=== PATIENT | male | born 1965 | race Caucasian/White ===

== ENCOUNTER → 2019-09-02 | Outpatient (CLI) | payer BC | LOC: COL.RAD 12:18 | DX: M47.24 Other spondylosis with radiculopathy, thoracic region (principal) ==

== ENCOUNTER 2020-06-11 11:14 | Day surgery (SDC) | payer BC ==
[2020-06-11] VITALS (7 sets, daily range): BP systolic 103–113; BP diastolic 62–75; PULSE 68–106; TEMP 98.2
[~2020-06-11] VITALS: Ht 185.4 cm; Wt 79.3 kg
[2020-06-11] MEDS ORDERED: ZESTRIL 20MG TA20 MG PO (12:19)
[2020-06-11] MEDS ORDERED: XANAX 1MG1 MG PO (12:19)
[2020-06-11 12:20] LABS: HEMATOCRIT 42.1 % (42.0-52.0); HEMOGLOBIN 13.6 g/dl (13.5-18.0); MEAN CELL VOLUME 87 fl (80.0-100.0); MEAN CORPUSCULAR HEMOGLOBIN 28 pg (27.0-31.0); MEAN CORPUSCULAR HGB CONC 32 g/dl (33.0-37.0); MEAN PLATELET VOLUME 8.9 fl (7.4-10.4); PLATELET COUNT 265 K/mm3 (130-400); RED BLOOD COUNT 4.83 M/mm3 (4.20-5.60); REDCELL DISTRIBUTION WIDTH-CV 14.2 % (11.5-14.5)
[2020-06-11] MEDS ORDERED: FOLIC ACID0.4 MG PO (12:20)
[2020-06-11] MEDS ORDERED: LIPITOR 40MG TA40 MG PO (12:21)
[2020-06-11] MEDS ORDERED: SINGULAIR 110 MG/TAB PO (12:21)
[2020-06-11] MEDS ORDERED: CLARITIN 1010 MG/TAB PO (12:21)
[2020-06-11] MEDS ORDERED: BENADRYL25 M2 PO (12:22)
[2020-06-11] MEDS ORDERED: VITAMIN B12 681 TAB PO (12:22)
[2020-06-11] MEDS ORDERED: NEURONTIN600 MG/TAB PO (12:23)
[2020-06-11] MEDS ORDERED: MASON NATURAL2000 IU PO (12:23)
[2020-06-11] MEDS ORDERED: CYMBALTA 60MG60 MG PO (12:23)
[2020-06-11 12:26] LABS: INR 1.1 (0.8-3.0); PROTHROMBIN TIME 12.1 SECONDS (9.7-12.8)
[2020-06-11 12:30] LABS: CALCIUM 9.8 mg/dL (8.4-10.2); CREATININE, serum 0.89 (0.66-1.25)
[2020-06-11 13:01] LABS: POTASSIUM 4.9 mmol/L (3.4-5.0)
--- NOTE | 2020-06-11 13:17 | NUR ---
SEE MERGE DOCUMENTATION FOR MEDICATION ADMINISTRATION TIMES AND INTRA/POST PROCEDURE SEDATION ASSESSMENTS.
--- NOTE | 2020-06-11 14:30 | NUR ---
Back from [facility] where pt was kept for an hour post procedure to watch blood pressure. Alert and oriented, denies pain and needs at this time. VSS at baseline. Will monitor
--- NOTE | 2020-06-11 16:00 | NUR ---
INT discontinued intact. Right Tband deflated of 12 cc air and pressure dressing applied. Discharge instructions given and ambulated with steady gait with this nurse to car driven by sister
== END 2020-06-11 16:00 | disposition home or self-care (01) ==
LOC: COL.CAR 11:14
PROVIDERS: Internal Medicine Interventional Cardiology
DX: I24.0 Acute coronary thrombosis not resulting in myocardial infarction (principal); F41.9 Anxiety disorder, unspecified; E11.9 Type 2 diabetes mellitus without complications; F17.210 Nicotine dependence, cigarettes, uncomplicated; Z79.899 Other long term (current) drug therapy; Z20.828 Contact with and (suspected) exposure to other viral communicable diseases; Z79.4 Long term (current) use of insulin; Z88.1 Allergy status to other antibiotic agents
CPT/HCPCS: C1769; C1894; J1644; J2250; J3010; Q9967

== ENCOUNTER → 2020-10-20 | Outpatient (CLI) | payer BC ==
[~2020-10-20] MED LIST: BENADRYL25 M2 PO; CLARITIN 1010 MG/TAB PO; CYMBALTA 60MG60 MG PO; FOLIC ACID0.4 MG PO; LIPITOR 40MG TA40 MG PO; MASON NATURAL2000 IU PO; NEURONTIN600 MG/TAB PO; SINGULAIR 110 MG/TAB PO; VITAMIN B12 681 TAB PO; XANAX 1MG1 MG PO; ZESTRIL 20MG TA20 MG PO
[2020-10-20 14:54] LABS: C-REACTIVE PROTEIN < 0.5 mg/dL (0.0-0.9); TROPONIN-I < 0.012 ng/mL (0.000-0.035)
== END ==
LOC: ZCOL.LAB 14:06
PROVIDERS: Nurse Practitioner
DX: I25.10 Atherosclerotic heart disease of native coronary artery without angina pectoris (principal); R63.4 Abnormal weight loss

== ENCOUNTER → 2020-10-20 | Outpatient (CLI) | payer BC | LOC: COL.RAD 15:30 | DX: J90 Pleural effusion, not elsewhere classified (principal); J98.11 Atelectasis; J18.1 Lobar pneumonia, unspecified organism; R59.0 Localized enlarged lymph nodes; Z95.1 Presence of aortocoronary bypass graft | CPT/HCPCS: Q9967 ==

== ENCOUNTER → 2020-12-09 | Outpatient (CLI) | payer BC ==
[2020-12-11 13:53] LABS: ANGIOTENSIN CONVERTING ENZYME 91 U/L (16 - 85)
== END ==
LOC: COL.LAB
PROVIDERS: Internal Medicine Pulmonary Disease
DX: J90 Pleural effusion, not elsewhere classified (principal)

== ENCOUNTER 2020-12-17 14:45 | Outpatient (RCR) | payer OTHER | END 2021-01-19 06:05 | disposition home or self-care (01) | LOC: COL.CR 14:45 | DX: Z48.812 Encounter for surgical aftercare following surgery on the circulatory system (principal); Z95.1 Presence of aortocoronary bypass graft; I25.10 Atherosclerotic heart disease of native coronary artery without angina pectoris ==

== ENCOUNTER → 2021-01-10 | Outpatient (CLI) | payer OTHER | LOC: COL.RAD 12:45 | DX: J98.4 Other disorders of lung (principal); J90 Pleural effusion, not elsewhere classified; Z95.1 Presence of aortocoronary bypass graft; Z98.890 Other specified postprocedural states ==